=== PATIENT | male | born 1955 | race Caucasian/White ===

== ENCOUNTER 2018-07-24 14:21 | Outpatient (CLI) | payer OTHER, SELFPAY ==
--- NOTE | 2018-07-24 12:50 | DI.RAD_ITS ---
SYMPTOM/DIAGNOSIS: LT SI PAIN LEFT HIP: Two views. No priors. There is mild joint space narrowing and acetabular spurring of the left hip. The bones are intact and normally mineralized. There are mild degenerative changes seen in the lower lumbar spine. There is also mild narrowing and periarticular spurring in the right hip. Vascular calcifications are seen in the soft tissues. IMPRESSION: Osteoarthritis of the hips, left greater than right.
== END 2018-07-24 14:41 ==
PROVIDERS: PCP Family Medicine; Visit Provider Family Medicine
DX: M53.3 Sacrococcygeal disorders, not elsewhere classified (principal); M16.0 Bilateral primary osteoarthritis of hip
CPT/HCPCS: 73502

== ENCOUNTER 2019-01-17 12:19 | Outpatient (CLI) | payer OTHER, SELFPAY ==
[2019-01-17 13:14] LABS: Hemoglobin A1C 5.6 % (4.5-6.2)
[2019-01-17 13:31] LABS: HGB 16.7 g/dL (13.5-17.5); Mean Corp. HGB Concentration 33.4 g/dL (32.0-36.0); Mean Corpuscular Hemoglobin 31.9 pg (27.0-33.0); Mean Corpuscular Volume 95.6 fL (80-95); Platelet Count 219 x1000/uL (130-400); RBC 5.23 m/cumm (4.50-6.00); RBC Distribution Width 13.9 % (11.8-14.1); White Blood Cell Count 9.91 k/cumm (4.4-10.8)
[2019-01-17 13:45] LABS: ALT 33 U/L (12-78); AST 18 U/L (15-37); Albumin 3.8 g/dL (3.4-5.0); Alkaline Phosphatase 83 U/L (46-116); Anion Gap 9.3 mmol/L (3-11); BUN 12 mg/dL (7-18); Bilirubin, Total 0.5 mg/dL (0.2-1.0); CO2 30.7 mmol/L (21.0-32.0); CREATININE 0.92 mg/dL (0.70-1.30); Calcium 9.5 mg/dL (8.5-10.1); Chloride 100 mmol/L (98-107); Cholesterol 206 mg/dL (50-200); Glucose 96 mg/dL (70-100); HDL Cholesterol 52 mg/dL (40-60); LDL CHOLESTEROL 122 mg/dL (<100); Potassium 3.9 mmol/L (3.5-5.1); Sodium 140 mmol/L (136-145); TSH (W/Ref FT4) 1.41 uIU/mL (0.358-3.74); Triglyceride 140 mg/dL (30-150)
== END 2019-01-17 12:39 ==
PROVIDERS: PCP Family Medicine; Visit Provider Nurse Practitioner
DX: I10 Essential (primary) hypertension (principal); R53.83 Other fatigue; R73.01 Impaired fasting glucose; E66.9 Obesity, unspecified; E11.9 Type 2 diabetes mellitus without complications
CPT/HCPCS: 36415; 80053; 80061; 83721; 85027; 83036; 84443